=== PATIENT | female | born 1965 | race Two or more races ===

== ENCOUNTER → 2017-11-03 | Emergency (ER) | payer OTHER ==
[~2017-11-03] VITALS: Ht 152.4 cm; Wt 75.3 kg
[~2017-11-03] MED LIST: ALBUTEROL2.5 MG/3 M IH
== END | disposition home or self-care (01) ==
LOC: ER 14:25
DX: E11.65 Type 2 diabetes mellitus with hyperglycemia (principal)

== ENCOUNTER 2019-09-07 13:12 | Outpatient (CLI) | payer OTHER | END 2019-09-07 13:20 | disposition home or self-care (01) | LOC: RAD 13:12 | DX: H43.13 Vitreous hemorrhage, bilateral (principal) ==

== ENCOUNTER 2020-01-21 08:38 | Outpatient (CLI) | payer OTHER | END 2020-01-21 08:58 | disposition home or self-care (01) | LOC: MAMO-SONO 08:38 | DX: Z12.31 Encounter for screening mammogram for malignant neoplasm of breast (principal) ==

== ENCOUNTER → 2023-09-05 | Emergency (ER) | payer OTHER ==
[~2023-09-05] VITALS: Ht 152.4 cm; Wt 77.6 kg
[~2023-09-05] MED LIST changes: +CHILDREN'S ASPI81 MG; +CRESTOR40 MG; +KETOROLAC TROMETHAMINE 60 MG VIAL IM ONE; +LANTUS SOL100 UNIT/1; +LOSARTAN POTAS100 MG PO
[2023-09-05 09:15] LABS: ERYTHROCYTE SEDIMENTATION RATE 63 mm/hr; HEMATOCRIT 34.1 % (36.0-45.00); HEMOGLOBIN 11.4 g/dL (12.0-15.00); MEAN CELL VOLUME 80.6 fL (80.00-100.00); MEAN CORPUSCULAR HEMOGLOBIN 26.9 pg (27.00-32.0); MEAN CORPUSCULAR HGB CONC 33.4 g/dl (32.0-36.0); PLATELET COUNT 476 K/uL (150-450); RED BLOOD COUNT 4.23 M/uL (4.00-6.00); RED CELL DISTRIBUTION WIDTH 14.1 % (11.5-14.5)
[2023-09-05 09:50] LABS: CALCIUM 9.8 mg/dL (8.5-10.1); CREATININE SERUM 0.81 mg/dL (0.55-1.02); GFR 72.88; POTASSIUM 4.77 mEq/L (3.5-5.1)
[2023-09-05 10:50] LABS: URINE APPEARANCE Clear; URINE BILIRRUBIN Negative (NEGATIVE); URINE BLOOD Negative; URINE COLOR Yellow; URINE GLUCOSE Negative (NEGATIVE); URINE LEUKOCYTE Small; URINE NITRATE Positive; URINE PROTEIN 30 (NEGATIVE)
[2023-09-05 10:55] LABS: URINE EPITHELIAL CELLS 12.5 uL (0.0-38.8); URINE RBC 2.1 uL (0.0-20.8)
[2023-09-05 11:23] LABS: URINE BACTERIA > 9821.5 uL (0.0-1933)
== END | disposition home or self-care (01) ==
LOC: ER 06:49
PROVIDERS: Emergency Medicine
DX: R10.31 Right lower quadrant pain (principal); J90 Pleural effusion, not elsewhere classified; Z20.822 Contact with and (suspected) exposure to COVID-19; I10 Essential (primary) hypertension

== ENCOUNTER 2023-09-06 18:46 | Inpatient (IN) | payer OTHER ==
[~2023-09-06] VITALS: Ht 152.4 cm; Wt 73.5 kg
[~2023-09-06 18:46] MED LIST changes: -KETOROLAC TROMETHAMINE 60 MG VIAL IM ONE; -LANTUS SOL100 UNIT/1
[2023-09-06] MEDS ORDERED: LANTUS SOL100 UNIT/1 (19:55)
[2023-09-06] MEDS ORDERED: 0.9 % SODIUM CHLORIDE 500 ML IV ONE (20:30)
[2023-09-06 20:50] LABS: HEMATOCRIT 31.9 % (36.0-45.00); HEMOGLOBIN 10.5 g/dL (12.0-15.00); MEAN CELL VOLUME 80.3 fL (80.00-100.00); MEAN CORPUSCULAR HEMOGLOBIN 26.3 pg (27.00-32.0); MEAN CORPUSCULAR HGB CONC 32.8 g/dl (32.0-36.0); PLATELET COUNT 466 K/uL (150-450); RED BLOOD COUNT 3.98 M/uL (4.00-6.00); RED CELL DISTRIBUTION WIDTH 13.9 % (11.5-14.5)
[2023-09-06 20:51] LABS: URINE APPEARANCE Clear; URINE BILIRRUBIN Negative (NEGATIVE); URINE BLOOD Trace; URINE COLOR Yellow; URINE GLUCOSE Negative (NEGATIVE); URINE LEUKOCYTE Small; URINE NITRATE Negative; URINE PROTEIN Negative (NEGATIVE); URINE UROBILINOGEN 0.2 E.U./dl
[2023-09-06 20:54] LABS: URINE BACTERIA 41.5 uL (0.0-1933); URINE EPITHELIAL CELLS 11.4 uL (0.0-38.8); URINE RBC 2.1 uL (0.0-20.8); URINE WBC 41.6 uL (0.0-23.2)
[2023-09-06 21:13] LABS: ALBUMIN 2.8 gm/dL (3.4-5.0); BILIRUBIN TOTAL 0.41 mg/dL (0.3-1.2); CALCIUM 9.1 mg/dL (8.5-10.1); CREATININE SERUM 0.94 mg/dL (0.55-1.02); GFR 61.38; GLOBULINA 4.2 G/DL (2.4-3.5); POTASSIUM 4.37 mEq/L (3.5-5.1)
[2023-09-06] MEDS ORDERED: CIPROFLOXACIN IN 5 % DEXTROSE 400 MG/200 ML PIGGYBAG IV ONE (21:45)
[2023-09-06] MEDS ORDERED: 0.9 % SODIUM CHLORIDE 1,000 ML IV SCH (23:00)
[2023-09-06] MEDS ORDERED: DEXTROSE 50 % IN WATER 0.5 G/ML DISP.SYRIN IV PRN (23:00)
[2023-09-06] MEDS ORDERED: ACETAMINOPHEN 500 MG GEL..CAP PO PRN (23:00)
[2023-09-06] MEDS ORDERED: INSULIN LISPRO 1,000 UNIT/10 ML UNITS SUBCUTANEO PRN (23:00)
[2023-09-07 01:42] LABS: INR 1.05; PARTIAL THROMBOPLASTIN TIME 29.3 SECONDS (22.0-34.0)
[2023-09-07] MEDS ORDERED: ENOXAPARIN SODIUM 40 MG/0.4 ML SYRINGE SUBCUTANEO SCH (09:00)
[2023-09-07] MEDS ORDERED: CEFTRIAXONE SODIUM 2,000 MG in 0.9 % SODIUM CHLORIDE 100 ML IV SCH (09:00)
[2023-09-07] MEDS ORDERED: LOSARTAN POTASSIUM 100 MG TABLET PO SCH (09:00)
[2023-09-07] MEDS ORDERED: FUROsemide 20 MG/2 ML VIAL IV SCH (09:00)
[2023-09-07] MEDS ORDERED: ASPIRIN 81 MG TAB.CHEW PO SCH (09:00)
[2023-09-08 08:50] LABS: HEMATOCRIT 32.9 % (36.0-45.00); HEMOGLOBIN 10.8 g/dL (12.0-15.00); MEAN CELL VOLUME 81.9 fL (80.00-100.00); MEAN CORPUSCULAR HEMOGLOBIN 26.9 pg (27.00-32.0); MEAN CORPUSCULAR HGB CONC 32.9 g/dl (32.0-36.0); PLATELET COUNT 475 K/uL (150-450); RED BLOOD COUNT 4.02 M/uL (4.00-6.00); RED CELL DISTRIBUTION WIDTH 13.8 % (11.5-14.5)
[2023-09-08 09:14] LABS: ALBUMIN 2.9 gm/dL (3.4-5.0); BILIRUBIN TOTAL 0.37 mg/dL (0.3-1.2); CALCIUM 9.1 mg/dL (8.5-10.1); CREATININE SERUM 0.72 mg/dL (0.55-1.02); GFR 83.49; GLOBULINA 3.3 G/DL (2.4-3.5); POTASSIUM 5.13 mEq/L (3.5-5.1); TOTAL PROTEIN 6.2 gm/dL (6.4-8.2); TSH 1.96 uIU/mL (0.358-3.74)
[2023-09-08 15:24] LABS: PLATELET ESTIMATE NORMAL (NORMAL)
[2023-09-09] MEDS ORDERED: INSULIN LISPRO 1,000 UNIT/10 ML UNITS SUBCUTANEO SCH (08:00)
[2023-09-09] MEDS ORDERED: INSULIN GLARGINE,HUM.REC.ANLOG 1,000 UNITS/10 ML UNITS SUBCUTANEO SCH (09:00)
[2023-09-10] MEDS ORDERED: AMLODIPINE BESYLATE 5 MG TABLET PO SCH (09:00)
== END 2023-09-10 13:18 | disposition home or self-care (01) | DRG 690 ==
LOC: ER 18:46 → MEDI 23:00 → SEC-K 23:00 → MEDI 09-07 15:56
PROVIDERS: General Practice; Internal Medicine Endocrinology, Diabetes & Metabolism; Nurse Practitioner Family; Student in an Organized Health Care Education/Training Program; ADMIT Internal Medicine; ATTEND Internal Medicine
PROC: BW21ZZZ Computerized Tomography (CT Scan) of Abdomen and Pelvis (ICD-10-PCS; principal; 2023-09-06)
PROC: BW24ZZZ Computerized Tomography (CT Scan) of Chest and Abdomen (ICD-10-PCS; 2023-09-06)
PROC: B24BZZZ Ultrasonography of Heart with Aorta (ICD-10-PCS; 2023-09-08)
DX: N39.0 Urinary tract infection, site not specified (principal); I25.10 Atherosclerotic heart disease of native coronary artery without angina pectoris; I11.0 Hypertensive heart disease with heart failure; I50.9 Heart failure, unspecified; E11.65 Type 2 diabetes mellitus with hyperglycemia; Z79.4 Long term (current) use of insulin; Z20.822 Contact with and (suspected) exposure to COVID-19

== ENCOUNTER 2024-04-05 17:22 | Emergency (ER) | payer OTHER ==
[~2024-04-05] VITALS: Ht 154.9 cm; Wt 81.6 kg
[~2024-04-05 17:22] MED LIST changes: +LANTUS SOL100 UNIT/1
[2024-04-05] MEDS ORDERED: ANTIVERT25 M2 (17:44)
[2024-04-05] MEDS ORDERED: JANUMET 50-1,01 EACH (17:44)
[2024-04-05] MEDS ORDERED: NORVASC2.5 M1 (17:44)
== END 2024-04-05 20:58 | disposition home or self-care (01) ==
LOC: ER 17:24
DX: R42 Dizziness and giddiness (principal); E11.9 Type 2 diabetes mellitus without complications; Z79.4 Long term (current) use of insulin; I10 Essential (primary) hypertension